=== PATIENT | male | born 1990 | race Caucasian/White ===

== ENCOUNTER 2018-02-04 12:35 | Emergency (ER) | payer SELFPAY ==
[~2018-02-04] VITALS: Ht 170.2 cm; Wt 57.2 kg
[2018-02-04 12:35] VITALS: BP_SYST 121; BP_DIAS 10; BP_DIAS 70
--- NOTE | 2018-02-04 12:35 | NUR ---
PT AMBULATED TO CHAIR E FOR EKG AT THIS TIME
--- NOTE | 2018-02-04 12:52 | NUR ---
EKG REVIEWED BY ERMD DR. LUCIO
--- NOTE | 2018-02-04 13:17 | NUR ---
PATIENT TRANSFERRED FROM CHAIR E TO BED #8
--- NOTE | 2018-02-04 13:27 | NUR ---
PT. RESTING COMFORTABLY IN BED, RR EVEN AND UNLABORED. FAMILY MEMBER AT BEDSIDE. VSS. WILL CONTINUE TO MONITOR.
[2018-02-04] MEDS ORDERED: KETOROLAC 30 MG/ML VIAL IM ONE (13:35)
[2018-02-04] MEDS ORDERED: KETOROLAC 30 MG/ML VIAL IVP ONE (13:40)
[2018-02-04 14:08] VITALS: BP 120/68
== END 2018-02-04 14:08 | disposition home or self-care (01) ==
LOC: EDBD 12:35 → MED 12:35
DX: R07.9 Chest pain, unspecified (principal)
CPT/HCPCS: 71045; 93005; 96374; 99284; J1885; Q0092